=== PATIENT | female | born 1955 | race Caucasian/White ===

== ENCOUNTER 2022-02-09 19:23 | Inpatient (IN) | payer MEDICARE, OTHER ==
[~2022-02-09] VITALS: Ht 134.6 cm; Wt 48.1 kg
[2022-02-09 20:00] VITALS: BP 106/79
[2022-02-09] MEDS ORDERED: ACETAMINOPHEN 325 MG TABLET PO PRN (20:00)
[2022-02-09] MEDS ORDERED: MAGNESIUM HYDROXIDE 30 ML UDC PO PRN (20:00)
[2022-02-09] MEDS ORDERED: TEMAZEPAM 7.5 MG CAPSULE PO PRN (20:00)
[2022-02-09] MEDS ORDERED: MAG HYDROX/AL HYDROX/SIMETH 30 ML UDC PO PRN (20:00)
[2022-02-09] MEDS ORDERED: clonazePAM 0.5 MG TABLET PO PRN (20:00)
[2022-02-09] MEDS ORDERED: BLOOD SUGAR DIAGNOSTIC 1 EACH STRIP IN ONE (21:00)
[2022-02-09 23:13] VITALS: BP 115/68
--- NOTE | 2022-02-09 23:16 | NUR ---
RN NOTES : ADMISSION NOTES: ADMITTED THIS 66Y/O FEMALE PATIENT DIRECT ADMIT FROM [facility] , INITIALLY FROM HOME. ADMITTED TO 5150 HOLD PER HOLD GRAVELY DISABLED. DUE TO PARANOID ,DELUSIONAL AND REFUSE TO RETURN HOME AND BELEIVES HER HOUSE HAS POISONOUS GAS , UPON FACE TO FACE ASSESSMENT PATIENT IS A&O X2 ,EASILY AGITATED, PARANOID, CONFUSED,DISORGNIZED, DISHELVED, POOR HYGIENE, UNCOOPERTIVE,POOR DECISION MAKING,REFUSED TO ANSWER QUESTIONS, DENIES SI /HI AT THIS TIME, PT. IS POOR HISTORIAN, POOR INSIGHT ,POOR JUDGEMENT , BOTH MD AWARE AND NOTIFIED OF THE ADMISSION, BELONGINGS CONTRABAND WERE DONE , PT. REFUSED SIGNS ADMISSION CONSENT PAPER DUE TO CONFUSED,DISORGNIZED,ENCOURAGED PT. TO TAKE SHOWER, REFUSED SKIN ASSESSMENT ,ENCOURAGED X3 BUT PT. STRONGLY REFUSED, PT. RIGHTS DISCUSS BY JOB DEVELOPER , PROVIDE THE PT. WITH HANDBOOK, AND MEDICATIONS GUIDE, ENVIRONMENTAL SAFETY CHECK DONE, ENCOURAGED PT. VERBALIZED ANY FEELING CONCERN TO STAFF, ORIENT TO UNIT POLICY, NO ACUTE DISTRESS NOTED,VITAL SIGNS WNL ,DENIES ANY PAIN AT THIS TIME,WILL CONTINUE TO MONITOR FOR Q15 SAFETY AND BEHAVIOR.
--- NOTE | 2022-02-09 23:26 | NUR ---
RN NOTES: REFUSED SKIN ASSESSMENT PT.REFUSED SKIN ASSESSMENT ,DUE TO EASILY AGITATED, PARANOID, UNCOOPERATIVE ENCOURAGED X3 PT. STRONGLY REFUSED, PER PT. MY SKIN IS FINE ,WILL CONTINUE TO MONITOR.
[2022-02-10 08:00] VITALS: BP 113/61
[2022-02-10 08:19] LABS: BASOPHILS % (AUTO) 0.3 % (0.0-2.0); EOSINOPHILS % (AUTO) 0.8 % (0.0-6.0); HEMATOCRIT 34 % (33-45); LYMPHOCYTES # (AUTO) 1.5 K/uL (0.8-4.8); LYMPHOCYTES % (AUTO) 19.9 % (20.0-44.0); MEAN CORPUSCULAR HGB CONC 35 g/dl (31.0-36.0); MEAN CORPUSCULAR VOLUME 105 fL (82-100); MONOCYTES # (AUTO) 0.5 K/uL (0.1-1.30); MONOCYTES % (AUTO) 6.4 % (2.0-12.0); NEUTROPHILS # (AUTO) 5.6 K/uL (1.8-8.9); NEUTROPHILS % (AUTO) 72.6 % (43.0-81.0); PLATELET COUNT (AUTO) 137 K/uL (150-450); RED BLOOD CELL COUNT(AUTO) 3.27 MIL/uL (4.0-5.2); WHITE BLOOD COUNT (AUTO) 7.7 K/uL (4.3-11.0)
[2022-02-10 08:46] LABS: CREATININE 0.8 mg/dL (0.6-1.3); POTASSIUM 3.7 mmol/L (3.5-5.1)
--- NOTE | 2022-02-10 09:43 | NUR ---
RN-CO: Received patient awake, denied pain and discomforts. Uncooperative to care, refused to eat, communicate and do morning care. She is focus on her discharge.We will continue to monitor her and encouraged to ventilate her feelings.
[2022-02-10] MEDS: OLANZAPINE 2.5 MG TABLET PO SCH ×2 (10:00→16:29)
[2022-02-10] MEDS: DIVALPROEX SODIUM 125 MG CAP.SPRINK PO SCH ×3 (10:00→21:54)
--- NOTE | 2022-02-10 10:23 | NUR ---
RN-CO: Patient refused her medications and refused her wristband to be scanned.
[2022-02-10 13:09] LABS: BAND % (MANUAL) 3 % (0.0-5.0); BASOPHILS % (MANUAL) 0 % (0.0-2.0); EOSINOPHILS % (MANUAL) 0 % (0-4); LYMPHOCYTES % (MANUAL) 21 % (16-48); MONOCYTES % (MANUAL) 8 % (0-11.0); NEUTROPHILS % (MANUAL) 68 (42-76)
[2022-02-10 16:00] VITALS: BP 122/75
[2022-02-10 20:42] VITALS: BP 150/77
--- NOTE | 2022-02-10 21:30 | NUR ---
RN note Received patient awake, sitting in bed. no c/o pain or discomfort at this time. Pt refuses med Depakote. Pt is educated on action of med, and on importance of taking med. But pt still declines to take med. She asks to let her be. she also refuses skin assessment, and picture taken. She states that she wants to be discharged. Will continue to monitor pt, and encourage pt to verbalize her feelings.
--- NOTE | 2022-02-11 06:51 | NUR ---
RN NOTE LEFT PT IN BED, STILL SLEEPING. PT IN STABLE CONDITION. NO C/O PAIN OR DISCOMFORT, NO ACUTE DISTRESS NOTED. WILL ENDORSE TO AM SHIFT RN FOR CONTINUITY OF CARE.
[2022-02-11 08:00] VITALS: BP 131/72
[2022-02-11] MEDS: DIVALPROEX SODIUM 125 MG CAP.SPRINK PO SCH ×2 (08:22→21:00)
[2022-02-11] MEDS: OLANZAPINE 2.5 MG TABLET PO SCH ×2 (08:22→16:12)
--- NOTE | 2022-02-11 08:23 | NUR ---
RN-CO: Patient refused her medications , I explained the benefits of taking it but firmly refused. Dr Carter made aware.
--- NOTE | 2022-02-11 10:53 | NUR ---
RN-CO: Advised patient to use walker but she refused.
--- NOTE | 2022-02-11 11:45 | NUR ---
Treatment Plan: Pt yelled at this insurance writer and refused to sign the treatment plan. Pt verbally abusive.
--- NOTE | 2022-02-11 11:45 | NUR ---
RE Initial Discharge Note: Pt currently resides at home [address] [place] [address]; ([phone]). Pt did not want to share any information. Unsure if pt will return back home. RE will make APS report due to hold stating pt's home is feces and urine - report for self-neglect. RE attempted to life insurance salesperson to notify brothcarolina Greco ([phone]) and phone number was invalid. RE will work with the MD and pt to help coordinate appropriate discharge.
--- NOTE | 2022-02-11 11:45 | NUR ---
RE Clinical Note: Pt placed on a 5150 hold for GD. Pt has been paranoid and suspicious at home. Pt home has been covered with urine and feces. Pt currently resides at home [address] [place] [address]; ([phone]). Pt did not want to share any information. Unsure if pt will return back home. SW will make APS report due to hold stating pt's home is feces and urine - report for self-neglect. RE attempted to field contact technician to notify brother Henrry ([phone]) and phone number was invalid. RE will work with the MD and pt to help coordinate appropriate discharge.
--- NOTE | 2022-02-11 11:58 | NUR ---
APS: RE filed APS report through [facility] #[id number] for self-neglect. Addendum: 02/11/22 at 1201 by RE FORDE RE placed in patient's chart.
[2022-02-11 16:00] VITALS: BP 142/73
--- NOTE | 2022-02-11 16:12 | NUR ---
RN-CO: Patient refused her pm medications. Pt stated " I don't need any medications, don't give it to me.!"
[2022-02-11 19:39] VITALS: BP 147/72
--- NOTE | 2022-02-12 02:04 | NUR ---
RN note: Patient refused her HS scheduled medication "I am not taking medication,I don't need it".
--- NOTE | 2022-02-12 07:20 | NUR ---
RN GPS Opening Notes: Received patient in bed, asleep but easily arouses to voice. Patient has no c/o pain or discomfort at this time. Patient is alert to name and in acute distress noted at this time. No SOB noted. Will continue to monitor patient throughout shift.
[2022-02-12 08:00] VITALS: BP 105/61
[2022-02-12] MEDS: DIVALPROEX SODIUM 125 MG CAP.SPRINK PO SCH ×2 (09:00→21:00)
[2022-02-12] MEDS: OLANZAPINE 2.5 MG TABLET PO SCH ×2 (09:00→16:41)
--- NOTE | 2022-02-12 09:10 | NUR ---
Tried to offer patient's AM medications at this time but patient refused at this time, will try again later.
--- NOTE | 2022-02-12 09:18 | NUR ---
Physical therapist came to try to walk the patient but patient refused and said "leave me alone" Also offered the medication the second time but patient refused, medications returned.
[2022-02-12 16:02] VITALS: BP 126/65
--- NOTE | 2022-02-12 16:07 | NUR ---
Received an order of 14 day hold for the patient and Riese order from Dr. Wallace, faxed both forms to the court and received confirmation receipt. 14-day hold copy and Riese copy given to the patient and explained to patient
--- NOTE | 2022-02-12 16:41 | NUR ---
Tried to administer patient's Zyprexa as ordered but patient declined. Tried to offer it twice and explained to her the importance of taking her medication but patient stated "I don't want to take pills and leave me alone"
[2022-02-12] MEDS: ENSURE ENLIVE 237 ML LIQUID (VANILLA) PO SCH (18:04)
--- NOTE | 2022-02-12 18:34 | NUR ---
RN GPS Closing Notes: Patient in bed, awake, alert and in no acute distress. Patient in stable condition the entire shift with no c/o pain or discomfort at this time. Will endorse to next shift nurse for continuity of care.
[2022-02-12 20:58] VITALS: BP 130/71
--- NOTE | 2022-02-12 22:00 | NUR ---
RN NOTE: PATIENT REFUSED HER SCHEDULED MEDICATION. DESPITE OF EDUCATION PROVIDED REGARDING THE IMPORTANCE OF MEDICATION COMPLIANCE PATIENT STATED, "I DON'T NEED IT, I HAVE NO MEDICAL PROBLEM".
[2022-02-13 08:00] VITALS: BP 104/55
[2022-02-13] MEDS: DIVALPROEX SODIUM 125 MG CAP.SPRINK PO SCH ×3 (08:22→21:00)
[2022-02-13] MEDS: OLANZAPINE 2.5 MG TABLET PO SCH ×2 (08:22→16:12)
[2022-02-13] MEDS: ENSURE ENLIVE 237 ML LIQUID (VANILLA) PO SCH ×3 (09:00→16:09)
--- NOTE | 2022-02-13 09:32 | NUR ---
RN-CO: PATIENT REMAINS UNCOOPERQTIVE TO CARE. REFUSED HER MEDICATIONS AND HER MEAL. SHE THINKS THAT SOMEBODY WANTS TO KILL HER. HOWEVER IF SHE FEELS THE URGE TO EAT, SHE WILL TAKE HER FOOD AND CONSUME IT. .OFFERED FOOD AND FLUID AND ENCOURAGED REALITY CHECK.
--- NOTE | 2022-02-13 12:31 | NUR ---
APS Contact: SW received a call from APS social science research assistant from [facility] ([phone]) and wanted pt's status. SW left a detailed voicemail.
[2022-02-13 16:00] VITALS: BP 105/55
[2022-02-13 20:05] VITALS: BP 110/56
--- NOTE | 2022-02-13 21:54 | NUR ---
RN NOTE; PATIENT REFUSED SCHEDULED MEDS DURING SHIFT.SAID SHE DON'T NEED IT.
[2022-02-14 08:00] VITALS: BP 111/60
[2022-02-14] MEDS: ENSURE ENLIVE 237 ML LIQUID (VANILLA) PO SCH ×3 (08:27→17:33)
[2022-02-14] MEDS: DIVALPROEX SODIUM 125 MG CAP.SPRINK PO SCH ×3 (08:27→21:00)
[2022-02-14] MEDS: OLANZAPINE 2.5 MG TABLET PO SCH ×2 (08:27→16:38)
--- NOTE | 2022-02-14 08:28 | NUR ---
RN-NOTES PATIENT REFUSED ALL 0900AM MEDICATIONS STATED" I'M NOT TAKING ANY MEDICATIONS AT ALL ,THANK YOU". OFFERED X3 STILL REFUSED.
--- NOTE | 2022-02-14 12:15 | NUR ---
RN-NOTES RECEIVED T.O ORDER FROM DR. VALDES OF ZYPREXA 5MG IM EVERY REFUSAL OF ZYPREXA 2.5MG P.O. PATIENT IS RIESED. NOTED AND CARRIED OUT.
[2022-02-14 16:00] VITALS: BP 109/61
[2022-02-14] MEDS: OLANZAPINE 10 MG VIAL IM PRN (16:44)
--- NOTE | 2022-02-14 16:50 | NUR ---
RN-NOTES PATIENT REFUSED ZYPREXA 2.5MG P.O DESPITE EXPLANATIONS RISK AND BENEFITS. PATIENT STATED" I'M NOT TAKING ANY MEDICATION OR PILL ,TAKE IT AWAY" OFFERED X3 STILL REFUSED. ZYPREXA 5MG IM GIVEN ORDERED.PATIENT IS RIESED.
--- NOTE | 2022-02-14 18:37 | NUR ---
RN-NOTES PATIENT IN THE DAY ROOM UP IN THE MAGALIE CHAIR AWAKE A/OX1, GUARDED,NOTED WITH EASILY ANGRY AND IRRITABLE BEHAVIOR. NON COMPLIANT WITH P.O MEDICATIONS AND CARE. PATIENT IS REISED, IM MEDICATIONS GIVEN.ALL NEEDS ATTENDED AND ANTICIPATED. WILL CONT. MONITORING FOR SAFETY AND BEHAVIOR. Addendum: 02/14/22 at 1849 by JC VIDAL RN WILL ENDORSE PATIENT TO INCOMING NURSE FOR CONTINUITY OF CARE.
[2022-02-14 19:56] VITALS: BP 124/93
--- NOTE | 2022-02-14 20:15 | NUR ---
GPS FUNNEL COATER NOTE: PT IN MAGALIE CHAIR , AWAKE AND CALM, BREATHING EVEN AND UNLABORED, A/O X 2. DENIES PAIN / DISCOMFORT AT THIS TIME. DENIES SI/HI. VS WNL. SAFETY MEASURES OBSERVED. WILL KEEP PT CLEAN AND DRY, REPOSITION Q 2HRS AND OFFER PT TO GO BACK TO HER BED. WILL CONT TO MONITOR, ANTICIPATE AND ATTEND PT'S NEEDS.
--- NOTE | 2022-02-14 21:34 | NUR ---
DUE MEDICATION DEPAKOTE REFUSED 3X BY PT, RISK AND BENEFITS PROVIDED TO PT- BUT STILL REFUSED THE MEDICATION AND GOT REALLY LOUD AND ANGRY, "YELLING JUST GO AWAY LEAVE ME ALONE" ALSO OFFERED PT FLUIDS/ SNACKS ALSO REFUSING. WILL CONT TO MONITOR.
--- NOTE | 2022-02-14 22:58 | NUR ---
Pt assisted by HELPDESK MANAGER to restroom, and to her bed. Attended needs, and will cont to anticipate needs, will continue to monitor. Bed @ lowest position, bed alarm on, safety sr's x 2.
--- NOTE | 2022-02-15 01:05 | NUR ---
Pt comfortably sleeping in her bed, easy to arouse, breathing even and unlabored. Safety measures observed, will cont to monitor.
--- NOTE | 2022-02-15 06:13 | NUR ---
Pt is awake, ambulating in her room, breathing even and unlabored, provided with fluids/ drinks, tolerated well. Denies pain or discomfort, safety measures observed. Will cont to monitor and endorse satnam to am oncoming nurse.
[2022-02-15 08:00] VITALS: BP 124/64
[2022-02-15] MEDS: DIVALPROEX SODIUM 125 MG CAP.SPRINK PO SCH ×2 (09:00→21:00)
[2022-02-15] MEDS: OLANZAPINE 2.5 MG TABLET PO SCH ×2 (09:00→17:00)
[2022-02-15] MEDS: ENSURE ENLIVE 237 ML LIQUID (VANILLA) PO SCH ×3 (09:19→17:00)
[2022-02-15] MEDS: OLANZAPINE 10 MG VIAL IM PRN ×2 (09:23→18:11)
--- NOTE | 2022-02-15 09:30 | NUR ---
RN-NOTES PATIENT REFUSED ZYPREXA 2.5MG P.O . PATIENT STATED" TAKE YOUR MEDICATION OR PILL ,TAKE IT AWAY" OFFERED X3 STILL REFUSED. ZYPREXA 5MG IM GIVEN TO LEFT DELTOID,TOLERATED WELL.PATIENT IS RIESED.
--- NOTE | 2022-02-15 11:47 | NUR ---
RN-NOTES DR. JULIAN IN THE UNIT AND MADE AWARE OF PATIENT OVER GROWN NAILS ON THE FEET WITH VERBAL ORDER OF PODIATRY CONSULT. NOTED AND CARRIED OUT.
--- NOTE | 2022-02-15 12:30 | NUR ---
RN-NOTES PATIENT REFUSED TO BE SEEN BY DR. CHAVEZ ( WAREHOUSE DELIVERY MANAGER) PATIENT IS UNCOOPERATIVE.
[2022-02-15 16:00] VITALS: BP 126/75
--- NOTE | 2022-02-15 18:16 | NUR ---
RN-NOTES PATIENT REFUSED ZYPREXA 2.5MG P.O . OFFERED X3 STILL REFUSED. ZYPREXA 5MG IM GIVEN TO RIGHT DELTOID,TOLERATED WELL.PATIENT IS RIESED.
--- NOTE | 2022-02-15 19:05 | NUR ---
RN-NOTES PATIENT VISISBLE IN THE UNIT STAYS IN THE DAY ROOM REQUESTING TO BE UP IN THE MAGALIE CHAIR, AWAKE A/OX1, GUARDED,NOTED WITH EASILY ANGRY AND IRRITABLE BEHAVIOR. NON COMPLIANT WITH P.O MEDICATIONS AND CARE. PATIENT IS REISED, IM MEDICATIONS GIVEN TODAY.ALL NEEDS ATTENDED AND ANTICIPATED. WILL CONT. MONITORING FOR SAFETY AND BEHAVIOR.WILL ENDORSE TO INCOMING NURSE FOR CONTINUITY OF CARE.
[2022-02-15 20:00] VITALS: BP 121/65
--- NOTE | 2022-02-15 21:52 | NUR ---
RN NOTES: REFUSED MEDICATION PT. REFUSED SCHEDULE DEPAKOTE SPRINKLE 125 MG PO , ENCOUARGED X3 EXPLINED RISKS AND BENEFITS, BUT PT. STRONGLY REFUSED , EASILY AGITATED, PARANOID, ANXIOUS, PER PT. STATES I DONT NEED MEDICATION .
--- NOTE | 2022-02-15 21:57 | NUR ---
RN NOTES: PATIENT SITTING UP IN GERICHAIR, REFUSED TO GO BACK TO BED AT THIS TIME ,NO S/SX OF ACUTE DISTRESS NOTED. REFUSED TO ANSWER QUESTIONS, PATIENT UNCOOPERTIVE EASILY AGITATED, DISORGANIZED,GUARDED PARANOID,ANXIOUS POOR JUDGEMENT INSIGHT AND IMPULSE CONTROL, NON COMPLIANT WITH MEDS,HIGH FALL RISKS NEEDS FREQUENT REDIRECTION, ALL NEEDS ATTENDED AND ANTICIPATED, DENIES SI/HI AT THIS TIME.ENCOURAGE TO VERBALIZED ANY FEELING OR CONCERN, SAFETY MEASURES IN PLACE. WILL CONTINUE TO MONITOR .
--- NOTE | 2022-02-15 22:27 | NUR ---
RN NOTES: PT. TRANSFERED BACK TO BED , PT. RESTING IN HER BED AT THIS TIME, WILL CONTINUE WITH CARE
[2022-02-16] MEDS ORDERED: Z GUARD REMEDY 4 OZ OINT TP PRN (06:30)
[2022-02-16] MEDS: OLANZAPINE 2.5 MG TABLET PO SCH ×2 (09:00→17:00)
[2022-02-16] MEDS: DIVALPROEX SODIUM 125 MG CAP.SPRINK PO SCH ×2 (09:00→21:00)
[2022-02-16] MEDS: ENSURE ENLIVE 237 ML LIQUID (VANILLA) PO SCH ×3 (09:27→17:26)
[2022-02-16] MEDS: Z GUARD REMEDY 4 OZ OINT TP SCH (09:28)
[2022-02-16] MEDS: OLANZAPINE 10 MG VIAL IM PRN ×2 (09:30→17:40)
--- NOTE | 2022-02-16 09:42 | NUR ---
RN-NOTES PATIENT REFUSED ZYPREXA 2.5MG P.O . OFFERED X3 STILL REFUSED. ZYPREXA 5MG IM GIVEN TO LEFT BUTTOCKS,TOLERATED WELL.PATIENT IS RIESED.
[2022-02-16 16:04] VITALS: BP 117/75
--- NOTE | 2022-02-16 17:30 | NUR ---
RN-NOTES PATIENT REFUSED ZYPREXA 2.5MG P.O . PATIENT STATED" TAKE YOUR MEDICATION OR PILL ,TAKE IT AWAY".OFFERED X3 STILL REFUSED. ZYPREXA 5MG IM GIVEN TO RIGHT BUTTOCKS,TOLERATED WELL.PATIENT IS RIESED. PATIENT REFUSED LAB DRAWS AND REFUSED TO GIVE URINE SPECIMEN DESPITE ENCOURAGEMENT AND EXPLANATIONS RISK AND BENEFITS.CHARGE NURSE AWARE.WILL ENDORSE TO INCOMING NURSE FOR FOLLOW UP AND CONTINUITY OF CARE.
--- NOTE | 2022-02-16 19:02 | NUR ---
RN-NOTES PATIENT LYING IN BED AWAKE A/OX1,GUARDED,NOTED WITH EASILY ANGRY AND IRRITABLE BEHAVIOR.NON COMPLIANT WITH MEDICATIONS. PATIENT ATE VERY LITTLE THIS SHIFT,ENCOURAGED TO INCREASED FOOD AND FLUID INTAKE.PATIENT IS UN COOPERATIVE WITH STAFF REFUSED TO GIVE URINE SPECIMEN DESPITE EXPLANATIONS RISK AND BENEFITS.ALL NEEDS ATTENDED AND ANTICIPATED.WILL CONT. MONITORING FOR SAFETY AND BEHAVIOR.WILL ENDORSE TO INCOMING NURSE FOR CONTINUITY OF CARE.
[2022-02-16 20:00] VITALS: BP 119/70
--- NOTE | 2022-02-16 20:22 | NUR ---
RN NOTES: PATIENT RESTING IN ROOM, NO S/SX OF ACUTE DISTRESS NOTED. REFUSED TO ANSWER QUESTIONS, PATIENT EASILY AGITATED, DISORGANIZED,GUARDED PARANOID,ANXIOUS POOR JUDGEMENT INSIGHT AND IMPULSE CONTROL, NON COMPLIANT WITH MEDS,HIGH FALL RISKS NEEDS FREQUENT REDIRECTION, ALL NEEDS ATTENDED AND ANTICIPATED, DENIES SI/HI AT THIS TIME.ENCOURAGE TO VERBALIZED ANY FEELING OR CONCERN, SAFETY MEASURES IN PLACE. WILL CONTINUE TO MONITOR .
--- NOTE | 2022-02-17 07:26 | NUR ---
RN NOTES: PT. REFUSED URINE SPECIMEN TO GIVE, ENCOUARGED X3 EXPLINED RISKS AND BENEFITS, BUT PT. STRONGLY REFUSED , EASILY AGITATED, PARANOID, ANXIOUS, PER PT. STATES I DONT NEED ANY URINE SPECIMEN, ENDORSE TO AM NURSE .
[2022-02-17 08:00] VITALS: BP 119/62
[2022-02-17] MEDS: DIVALPROEX SODIUM 125 MG CAP.SPRINK PO SCH ×2 (09:00→21:00)
[2022-02-17] MEDS: ENSURE ENLIVE 237 ML LIQUID (VANILLA) PO SCH ×3 (09:04→17:07)
[2022-02-17] MEDS: OLANZAPINE 2.5 MG TABLET PO SCH ×2 (09:06→17:00)
[2022-02-17] MEDS: Z GUARD REMEDY 4 OZ OINT TP SCH (09:11)
--- NOTE | 2022-02-17 10:37 | NUR ---
PATIENT REFUSED DEPAKOTE 125MG THIS MORNING, AND INFORMED DR. VALDES REGARDING ISSUE.
--- NOTE | 2022-02-17 13:02 | NUR ---
GPS/RN PT RAN OUT OF THE UNIT. DR YANEZ WAS WITH THE CORPORATE DIRECTOR OF THE NOTE TO HELP PT BE BROUGHT BACK ON THE WHEEL CHAIR. PT IS AGITATED, NOT REDIRECTABLE, USED PROFANE LANGUAGE ZYPREXA 5MG IM ORDERED BY DR YANEZ.
[2022-02-17] MEDS ORDERED: OLANZAPINE 10 MG VIAL IM ONE (13:30)
[2022-02-17 16:00] VITALS: BP 108/70
[2022-02-17] MEDS: OLANZAPINE 10 MG VIAL IM PRN (17:13)
[2022-02-17 20:23] VITALS: BP 116/70
--- NOTE | 2022-02-17 22:27 | NUR ---
Pt refused medication Depakote 250 mg po @ 2100. Explained risk and benefits. Offered x3 and still refused. Pt states, " i dont take any meds at night, i dont want it." Will continue to monitor. Charge nurse aware.
--- NOTE | 2022-02-18 06:24 | NUR ---
Pt continues to be non compliant. Refused AM blood draw and urine collection. Offered x 3 and explained risk and benefits. Still refusing. Charge nurse aware. Will endorse to next shift.
[2022-02-18 08:00] VITALS: BP 117/57
--- NOTE | 2022-02-18 08:44 | NUR ---
RT NOTE PT REFUSED EKG. LET NURSE MICHAEL KNOW AND WAS INFORMED OF PATIENT DECLINING PROCEDURE. PT CURRENTLY STABLE.
[2022-02-18] MEDS: ENSURE ENLIVE 237 ML LIQUID (VANILLA) PO SCH ×3 (08:45→18:23)
[2022-02-18] MEDS: OLANZAPINE 2.5 MG TABLET PO SCH ×3 (09:00→17:00)
[2022-02-18] MEDS: DIVALPROEX SODIUM 125 MG CAP.SPRINK PO SCH ×2 (09:00→21:00)
[2022-02-18] MEDS: Z GUARD REMEDY 4 OZ OINT TP SCH (09:00)
[2022-02-18] MEDS: HALOPERIDOL LACTATE INJ 5 MG/ML VIAL IM SCH ×2 (09:05→18:26)
--- NOTE | 2022-02-18 09:17 | NUR ---
RN NOTES RECEIVED PT AWAKE AND ALERT X 2 IN MAGALIE - CHAIR, ABLE TO MAKE NEEDS KNOWN, STATING SHE WILL REFUSE ALL MEDICATIONS TODAY AND TO NOT EVEN TRY, EDUCATED ON IMPORTANCE OF THE MEDICATIONS AND REASON FOR THEM BUT STILL REFUSED, MD ORDERED HALDOL IM MEDICATION, PT STATED SHE DIDN'T WANT , WITH HELP OF MEDICAL LABORATORY TECHNICIAN ABLE TO ADMIN THE IM SHOT AT THIS TIME. WILL CONTINUE TO MONITOR FOR ANY ADVERSE EFFECTS, PT REQUESTED TO STAY IN ROOM IN MAGALIE CHAIR AT THIS TIME. WILL MONITOR
[2022-02-18 16:00] VITALS: BP 108/63
[2022-02-18 20:02] VITALS: BP 103/54
[2022-02-19 08:00] VITALS: BP 107/57
[2022-02-19] MEDS: DIVALPROEX SODIUM 125 MG CAP.SPRINK PO SCH ×2 (09:00→21:00)
[2022-02-19] MEDS: OLANZAPINE 2.5 MG TABLET PO SCH (09:00)
[2022-02-19] MEDS: ENSURE ENLIVE 237 ML LIQUID (VANILLA) PO SCH ×3 (11:10→17:07)
[2022-02-19] MEDS: Z GUARD REMEDY 4 OZ OINT TP SCH (11:10)
[2022-02-19] MEDS: OLANZAPINE 10 MG VIAL IM PRN (11:31)
[2022-02-19] MEDS: HALOPERIDOL LACTATE INJ 5 MG/ML VIAL IM SCH ×2 (11:32→17:07)
[2022-02-19 15:57] VITALS: BP 123/67
--- NOTE | 2022-02-19 18:17 | NUR ---
RN-NOTES RECEIVED T.O ORDER FROM FRONT LINE SUPERVISOR EDUIN OF IMODIUM 2MG P.O Q 6HR PRN FOR DIARRHEA
[2022-02-19] MEDS ORDERED: LOPERAMIDE HCL (2 MG CAP) 2 MG CAPSULE PO PRN (18:30)
[2022-02-19 19:59] VITALS: BP 100/56
--- NOTE | 2022-02-19 21:30 | NUR ---
RN NOTE PATIENT REFUSED SCHEDULED DEPAKOTE FOR TONIGHT. DESPITE OF EDUCATION PROVIDED REGARDING MEDICATION COMPLIANCE PATIENT CONTINUED TO REFUSE. PATIENT STATED, "I AM FINE", I DON'T HAVE ANY MEDICAL PROBLEMS".
[2022-02-20 08:00] VITALS: BP 119/64
[2022-02-20] MEDS: OLANZAPINE 2.5 MG TABLET PO SCH ×3 (09:00→17:00)
[2022-02-20] MEDS: DIVALPROEX SODIUM 125 MG CAP.SPRINK PO SCH ×3 (09:00→21:00)
[2022-02-20] MEDS: Z GUARD REMEDY 4 OZ OINT TP SCH (09:20)
[2022-02-20] MEDS: HALOPERIDOL LACTATE INJ 5 MG/ML VIAL IM SCH ×2 (09:20→17:35)
[2022-02-20] MEDS: ENSURE ENLIVE 237 ML LIQUID (VANILLA) PO SCH ×3 (09:20→17:35)
--- NOTE | 2022-02-20 10:15 | NUR ---
NURSE NOTE: PT REFUSED PO MEDS. ZYPREXA IM ADMINISTERED ORDERED PER REISE. PT STEFFEN WELL, WILL CONT TO MONITOR.
[2022-02-20] MEDS: OLANZAPINE 10 MG VIAL IM PRN ×2 (10:22→17:36)
[2022-02-20] MEDS ORDERED: HALOPERIDOL DECANOATE IM 100 MG/ML AMPUL IM ONE (13:00)
[2022-02-20 16:00] VITALS: BP 97/67
--- NOTE | 2022-02-20 19:40 | NUR ---
NURSE NOTE: PT REFUSED FOOD AND FLUIDS. ENCOURAGED MULTIPLE TIMES, BUT REFUSED EVERY TIME. ENDORSED TO PM SHIFT.
[2022-02-20 19:49] VITALS: BP 112/52
[2022-02-20 20:00] VITALS: BP 112/54
[2022-02-21 08:00] VITALS: BP 102/61
[2022-02-21] MEDS: OLANZAPINE 2.5 MG TABLET PO SCH ×2 (09:00→17:00)
[2022-02-21] MEDS: DIVALPROEX SODIUM 125 MG CAP.SPRINK PO SCH ×2 (09:00→21:00)
[2022-02-21] MEDS: ENSURE ENLIVE 237 ML LIQUID (VANILLA) PO SCH ×3 (09:16→17:29)
[2022-02-21] MEDS: Z GUARD REMEDY 4 OZ OINT TP SCH (09:17)
[2022-02-21] MEDS: OLANZAPINE 10 MG VIAL IM PRN ×2 (10:01→17:31)
[2022-02-21] MEDS: HALOPERIDOL LACTATE INJ 5 MG/ML VIAL IM SCH ×2 (10:01→17:29)
--- NOTE | 2022-02-21 10:15 | NUR ---
RN-NOTES PATIENT REFUSED ZYPREXA 2.5MG P.O . PATIENT STATED" NO MEDICATION OR PILL ,TAKE IT AWAY".OFFERED X3 STILL REFUSED. ZYPREXA 5MG IM AND HALDOL LACTATE 2MG IM GIVEN TO LEFT BUTTOCKS, TOLERATED WELL.PATIENT IS RIESED.
--- NOTE | 2022-02-21 11:12 | NUR ---
SNF Referral: SW sent clinicals to [facility] to Ana Rosa ([phone]) for placement. SW sent H & P, progress notes, and medication list.
[2022-02-21 16:00] VITALS: BP 98/68
--- NOTE | 2022-02-21 18:38 | NUR ---
RN-NOTES PATIENT LYING IN BED AWAKE A/OX1,GUARDED,NOTED WITH EASILY ANGRY AND IRRITABLE BEHAVIOR.NON COMPLIANT WITH P.O MEDICATIONS. PATIENT ATE VERY LITTLE THIS SHIFT,ENCOURAGED TO INCREASED FOOD AND FLUID INTAKE.PATIENT IS UN COOPERATIVE WITH STAFF.ALL NEEDS ATTENDED AND ANTICIPATED.WILL CONT. MONITORING FOR SAFETY AND BEHAVIOR.WILL ENDORSE TO INCOMING NURSE FOR CONTINUITY OF CARE.
--- NOTE | 2022-02-21 19:50 | NUR ---
RN NOTES: PATIENT RESTING IN HER BED ,NO S/SX OF ACUTE DISTRESS NOTED. REFUSED TO ANSWER QUESTIONS, PATIENT UNCOOPERTIVE EASILY AGITATED, DISORGANIZED,GUARDED PARANOID, POOR HYGINE .ANXIOUS POOR JUDGEMENT INSIGHT AND IMPULSE CONTROL, NON COMPLIANT WITH MEDS AND CARE ,HIGH FALL RISKS NEEDS FREQUENT REDIRECTION, ALL NEEDS ATTENDED AND ANTICIPATED, DENIES SI/HI AT THIS TIME.ENCOURAGE TO VERBALIZED ANY FEELING OR CONCERN, SAFETY MEASURES IN PLACE. WILL CONTINUE TO MONITOR .
[2022-02-21 20:00] VITALS: BP 105/71
--- NOTE | 2022-02-21 21:14 | NUR ---
RN NOTES: REFUSED MEDICATION PT. REFUSED SCHEDULE DEPAKOTE SPRINKLE 250 MG PO , ENCOUARGED X3 EXPLINED RISKS AND BENEFITS, BUT PT. STRONGLY REFUSED , EASILY AGITATED, PARANOID, ANXIOUS, PER PT. STATES I DONT TAKE ANY MEDICATION .
[2022-02-22 08:00] VITALS: BP 102/50
[2022-02-22] MEDS: DIVALPROEX SODIUM 125 MG CAP.SPRINK PO SCH ×2 (09:00→21:00)
[2022-02-22] MEDS: ENSURE ENLIVE 237 ML LIQUID (VANILLA) PO SCH ×3 (09:10→16:29)
[2022-02-22] MEDS: Z GUARD REMEDY 4 OZ OINT TP SCH (09:10)
--- NOTE | 2022-02-22 13:17 | NUR ---
SNF Contact: RE [facility] ([phone]) who stated pt is denied.
--- NOTE | 2022-02-22 13:21 | NUR ---
SNF Referral: RE sent clinicals to Zee scherer from [facility] ([phone]) for placement. SW sent H & P, progress notes, and medication list.
--- NOTE | 2022-02-22 13:22 | NUR ---
SNF Referral: RE sent clinicals to [facility] ([phone]) [facility] to help for placement. RE sent H & P, progress notes, and medication list.
--- NOTE | 2022-02-22 13:59 | NUR ---
SNF Contact: SW spoke with Zee statement distribution clerk from [facility] ([phone]) who stated pt is accepted.
[2022-02-22 16:00] VITALS: BP 147/80
--- NOTE | 2022-02-22 17:56 | NUR ---
Clarified the order of Cogentin from Dr. Justen Carter, to Cogentin 1 mg po HS and to given Cogentin 1 mg IM HS prn for for each refusal of oral Cogentin 1 mg.
[2022-02-22 20:00] VITALS: BP 129/65
[2022-02-22] MEDS ORDERED: HALOPERIDOL LACTATE INJ 5 MG/ML VIAL IM SCH (21:00)
[2022-02-22] MEDS: HALOPERIDOL 5 MG TABLET PO SCH (21:32)
[2022-02-22] MEDS: BENZTROPINE MESYLATE (1 MG) 1 MG TABLET PO SCH (21:32)
[2022-02-22] MEDS: HALOPERIDOL LACTATE INJ 5 MG/ML VIAL IM PRN (21:39)
[2022-02-22] MEDS: BENZTROPINE MESYLATE (2MG/2ML) 2 MG/2 ML AMPUL IM PRN (21:40)
--- NOTE | 2022-02-22 21:45 | NUR ---
RN NOTES: REFUSED PO MEDICATION PT. REFUSED SCHEDULE DEPAKOTE SPRINKLE 250 MG PO , COGENTIN 1 MG PO, HALDOL 1MG PO , ENCOUARGED X3 EXPLINED RISKS AND BENEFITS, BUT PT. STRONGLY REFUSED , EASILY AGITATED, PARANOID, ANXIOUS, PER PT. STATES I DONT TAKE ANY MEDICATION . PER MD ODRES : COGENTIN 1ML/IM , HALDOL 5MG/ IM, GIVEN PER MD ORDERS FOR PO REFUSAL , IM GIVEN WITH HELP OF THE STAFF, , WILL CONTINUE WITH CARE.
[2022-02-22] MEDS ORDERED: BENZTROPINE MESYLATE (1 MG) 1 MG TABLET PO SCH (22:00)
[2022-02-22] MEDS ORDERED: BENZTROPINE MESYLATE (2MG/2ML) 2 MG/2 ML AMPUL IM SCH (22:00)
[2022-02-22] MEDS ORDERED: BENZTROPINE MESYLATE (2MG/2ML) 2 MG/2 ML AMPUL IM PRN (22:00)
[2022-02-22] MEDS ORDERED: BENZTROPINE MESYLATE (1 MG) 1 MG TABLET PO PRN (22:00)
[2022-02-23 08:00] VITALS: BP 104/53
[2022-02-23] MEDS: Z GUARD REMEDY 4 OZ OINT TP SCH (08:55)
[2022-02-23] MEDS: DIVALPROEX SODIUM 125 MG CAP.SPRINK PO SCH ×4 (08:55→21:25)
[2022-02-23] MEDS: ENSURE ENLIVE 237 ML LIQUID (VANILLA) PO SCH ×3 (08:55→17:00)
[2022-02-23 16:00] VITALS: BP 114/68
[2022-02-23 20:00] VITALS: BP 111/73
[2022-02-23] MEDS: HALOPERIDOL 5 MG TABLET PO SCH ×2 (21:24→21:40)
[2022-02-23] MEDS: BENZTROPINE MESYLATE (1 MG) 1 MG TABLET PO SCH (21:40)
[2022-02-23] MEDS: BENZTROPINE MESYLATE (2MG/2ML) 2 MG/2 ML AMPUL IM PRN (22:57)
[2022-02-23] MEDS: HALOPERIDOL LACTATE INJ 5 MG/ML VIAL IM PRN (22:57)
--- NOTE | 2022-02-24 03:52 | NUR ---
This patient is alert and oriented alert and oriented X2. She has been pleasant and more responsive to conversation, answer appropriately on occasion However, she goes back and forth with whether she would take her medication. Finally, she was given her medications. Despite admonishment, she refuses, and then receives the shots. She slept for the duration of the shift. Addendum: 02/24/22 at 0653 by [facility] INPATIENT RN1 RN This patient received her haldol and cogentin 2200 scheduled doses IM, due to her refusal to take these medications p.o.
[2022-02-24 08:00] VITALS: BP 114/64
[2022-02-24] MEDS: ENSURE ENLIVE 237 ML LIQUID (VANILLA) PO SCH ×3 (08:03→17:05)
[2022-02-24] MEDS: Z GUARD REMEDY 4 OZ OINT TP SCH (08:03)
[2022-02-24] MEDS: DIVALPROEX SODIUM 125 MG CAP.SPRINK PO SCH ×2 (08:03→20:46)
[2022-02-24 16:00] VITALS: BP 118/63
[2022-02-24 20:45] VITALS: BP 127/69
[2022-02-24] MEDS: BENZTROPINE MESYLATE (1 MG) 1 MG TABLET PO SCH ×2 (21:05→21:09)
[2022-02-24] MEDS: HALOPERIDOL 5 MG TABLET PO SCH ×2 (21:05→21:09)
[2022-02-24] MEDS: HALOPERIDOL LACTATE INJ 5 MG/ML VIAL IM PRN (21:08)
[2022-02-24] MEDS: BENZTROPINE MESYLATE (2MG/2ML) 2 MG/2 ML AMPUL IM PRN (21:08)
[2022-02-25 08:00] VITALS: BP 100/58
[2022-02-25] MEDS: ENSURE ENLIVE 237 ML LIQUID (VANILLA) PO SCH ×3 (08:00→16:27)
[2022-02-25] MEDS: Z GUARD REMEDY 4 OZ OINT TP SCH (08:01)
[2022-02-25] MEDS: DIVALPROEX SODIUM 125 MG CAP.SPRINK PO SCH ×2 (08:02→21:00)
[2022-02-25 08:30] LABS: BASOPHILS % (AUTO) 0.3 % (0.0-2.0); EOSINOPHILS % (AUTO) 1.6 % (0.0-6.0); HEMATOCRIT 37 % (33-45); HEMOGLOBIN 12.6 g/dL (11.5-14.8); LYMPHOCYTES # (AUTO) 3.8 K/uL (0.8-4.8); LYMPHOCYTES % (AUTO) 36.5 % (20.0-44.0); MEAN CORPUSCULAR HGB CONC 34 g/dl (31.0-36.0); MEAN CORPUSCULAR VOLUME 104 fL (82-100); MONOCYTES # (AUTO) 0.6 K/uL (0.1-1.30); MONOCYTES % (AUTO) 5.7 % (2.0-12.0); NEUTROPHILS # (AUTO) 5.8 K/uL (1.8-8.9); NEUTROPHILS % (AUTO) 55.9 % (43.0-81.0); PLATELET COUNT (AUTO) 236 K/uL (150-450); RED BLOOD CELL COUNT(AUTO) 3.54 MIL/uL (4.0-5.2); WHITE BLOOD COUNT (AUTO) 10.4 K/uL (4.3-11.0)
[2022-02-25 08:31] LABS: BILIRUBIN,TOTAL 0.5 mg/dL (0.2-1.0); CALCIUM, SERUM 9.4 mg/dL (8.5-10.1); CREATININE 0.7 mg/dL (0.6-1.3); POTASSIUM 3.6 mmol/L (3.5-5.1); TOTAL PROTEIN, SERUM 6.5 g/dL (6.4-8.2)
--- NOTE | 2022-02-25 10:47 | NUR ---
RN-CO: Received patient in bed awake,appears to guarded ,paranoid and easily irritable upon approach.Patient noted preoccupied to her own thought process,No s/s of acute distress noted.Will continue to monitor q15 min rounds for safety. Patient refused all her morning medications.
[2022-02-25] MEDS ORDERED: HALOPERIDOL DECANOATE IM 100 MG/ML AMPUL IM ONE (13:00)
[2022-02-25 16:00] VITALS: BP 100/57
[2022-02-25 20:32] VITALS: BP 105/68
[2022-02-25] MEDS: BENZTROPINE MESYLATE (1 MG) 1 MG TABLET PO SCH (21:11)
[2022-02-25] MEDS: HALOPERIDOL 5 MG TABLET PO SCH (21:11)
--- NOTE | 2022-02-26 07:55 | NUR ---
SW Discharge Note: Patient will be discharged to [facility] SNF located at [address] [place] [id number]; ([phone]) via ambulance. Nina watts from [facility] accepted pt and is welcoming pt today. Patient does not have any supportive contact at this time. Pt appears to be alert and oriented x2. Pt denies visual/auditory hallucinations. Pt denies denies suicidal or homicidal ideation. Patient will continue to follow-up with (Psychiatrist) Dr. Wallace [address] [facility] [address], [place] [address]; ([phone]) (bottle sorter) Dr. Marti [address] [facility] [address], [place] [address]; ([phone]). Pt presented with euthymic mood and congruent affect.
[2022-02-26 08:00] VITALS: BP 100/58
[2022-02-26] MEDS: Z GUARD REMEDY 4 OZ OINT TP SCH (08:55)
[2022-02-26] MEDS: DIVALPROEX SODIUM 125 MG CAP.SPRINK PO SCH (08:55)
[2022-02-26] MEDS: ENSURE ENLIVE 237 ML LIQUID (VANILLA) PO SCH ×2 (08:55→13:04)
--- NOTE | 2022-02-26 09:00 | NUR ---
NURSE NOTE: PT REFUSED DEPAKOTE AT THIS TIME. WILL CONT TO MONITOR.
--- NOTE | 2022-02-26 13:35 | NUR ---
NURSE NOTE: 66 Y/O FEMALE DISCHARGED TO [facility] IN STABLE COND. COMPLIANT WITH MEDS, COOPERATIVE WITH TX PLANS. PT DENIES SI/HI AND INSTRUCTED TO GO TO THE CALL 911 IF DEVELOPING SI/HI. BEHAVIOR IMPROVED, PSYCHIATRICTX PLANS MET, MEDICAL TX PLANS DEFERRED FOR CONTINUAL MONITORING. EDUCATED PT ABOUT AFTER CARE PLAN AND COPY PROVIDED. RETURNED PERSONAL BELONGINGS TO PT. MEDICATIONS RECONCILED WITH DR VALDES AND Clayton OWEN SNOW BLOWER. BOTH DR VALDES AND LEXIE DISCHARGED PT. DR VALDES REMOVED HOLD. REPORT GIVEN TO [facility] AT [facility]. FOR CONTINUITY OF CARE. PT REFUSED TO SIGN DISCHARGE PAPER [employer]URES. PT LEFT THE UNIT AT 1335 VIA AMBULANCE.
== END 2022-02-26 13:40 | DRG 885 ==
LOC: GPS 19:23
PROVIDERS: ADMIT Nurse Practitioner Psychiatric/Mental Health; ATTEND Registered Nurse
DX: F25.9 Schizoaffective disorder, unspecified (principal); Z20.822 Contact with and (suspected) exposure to COVID-19; F41.9 Anxiety disorder, unspecified; F03.90 Unspecified dementia, unspecified severity, without behavioral disturbance, psychotic disturbance, mood disturbance, and anxiety; F29 Unspecified psychosis not due to a substance or known physiological condition; F22 Delusional disorders; Z73.6 Limitation of activities due to disability; Z91.199 Patient's noncompliance with other medical treatment and regimen due to unspecified reason; Z79.899 Other long term (current) drug therapy
CPT/HCPCS: 36415; 80048-TC; 80053-TC; 80061-TC; 82550-TC; 82553; 82962-TC; 85025-TC; 87081-TC; 97112-TC; 97116-TC; 97530-TC; J0515; J1630; J1631; J3490